=== PATIENT | female | born 1970 | race Caucasian/White ===

== ENCOUNTER 2023-09-18 09:36 | Outpatient (OUT) | payer OTHER, SELFPAY ==
--- NOTE | 2023-09-18 10:00 | XR_ITS ---
[address] [address] Patient Name: YAMILEX CASPER MRN: [id number] date: 1970 Sex: F Assigned Patient Location: [facility] Current Patient Location: [facility] Accession/Order Number: [id number] Exam Date: 09/18/2023 09:50 Report Date: 09/18/2023 15:02 At the request of: CHAVA KNIGHT Procedure: XR knee RT 4V EXAM: XR knee RT 4V HISTORY: Right Knee Pain COMPARISON: None. TECHNIQUE: 4 views FINDINGS: No acute fracture or dislocation. 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 Unremarkable soft tissues. XR/XR knee RT 4V IMPRESSION: Degenerative changes as above. Electronically authenticated by: ALFREDO SUMMERS Date: 09/18/2023 15:02
== END 2023-09-18 09:37 | disposition home or self-care (01) ==
LOC: RAD 09:42
PROVIDERS: PCP Family Medicine; Visit Provider Family Medicine
DX: M25.561 Pain in right knee (principal)
CPT/HCPCS: 73564